=== PATIENT | female | born 1935 | race Caucasian/White ===

== ENCOUNTER 2020-10-09 15:41 | Inpatient (IN) | payer OTHER ==
[2020-10-09 16:26] VITALS: BMI 32.2
[2020-10-09] MEDS ORDERED: DEXAMETHASONE SOD PHOSPHATE 10 MG/1 ML VIAL IVPUSH ONE (18:01)
[2020-10-09] MEDS ORDERED: DEXAMETHASONE SOD PHOSPHATE 10 MG/1 ML VIAL ONE (18:15)
[2020-10-09 18:21] LABS: BASO % 0.2 % (0-2.0); HEMATOCRIT 32.8 % (32.4-45.2); HEMOGLOBIN 11.2 GM/dL (10.7-15.3); LYMPH % 18.5 % (8-40); MCH 29.4 pg (25.7-33.7); MCHC 34.1 g/dl (32.0-36.0); MEAN CELL VOLUME 86.4 fl (80-96); MEAN PLT VOLUME 11.4 fl (7.5-11.1); MONO % 6.5 % (3.8-10.2); NEUT % 74.8 % (42.8-82.8); PLATELET COUNT 176 K/MM3 (134-434); RDW 14.4 % (11.6-15.6); WHITE BLOOD COUNT 5.9 K/mm3 (4.0-10.0)
[2020-10-09 18:22] LABS: VENOUS BASE EXCESS 1.8 mmol/L (-2-2); VENOUS O2 SATURATION 81.6 % (70-80); VENOUS PCO2 32.6 mmHg (38-52); VENOUS PH 7.495 (7.310-7.410)
[2020-10-09 18:41] LABS: BILIRUBIN,DIRECT 0.2 mg/dL (0.0-0.2)
[2020-10-09 18:46] LABS: PLATELET ESTIMATE ADEQUATE
[2020-10-09 18:58] LABS: ALBUMIN 3.3 g/dl (3.4-5.0); CALCIUM 8.6 mg/dL (8.5-10.1)
[2020-10-09 18:59] LABS: MAGNESIUM 2.6 mg/dL (1.8-2.4)
[2020-10-09 19:01] LABS: CREATININE 1.4 mg/dL (0.55-1.3)
[2020-10-09 19:03] LABS: BILIRUBIN,TOTAL 0.6 mg/dL (0.2-1); TOT PROT 7.3 g/dl (6.4-8.2)
[2020-10-09] MEDS ORDERED: AZITHROMYCIN IVPB 500 MG in DEXTROSE 5%-WATER - 250 ML IVPB ONE (19:09)
[2020-10-09] MEDS ORDERED: CEFTRIAXONE 1,000 MG in DEXTROSE 5%-WATER - 50 ML IVPB ONE (19:09)
[2020-10-09] MEDS ORDERED: CEFTRIAXONE 1 GM/50 ML BAG ONE (19:17)
[2020-10-09] MEDS ORDERED: AZITHROMYCIN IVPB 500 MG/250 ML BAG IVPB ONE (19:17)
[2020-10-09] MEDS ORDERED: POTASSIUM CHLORIDE TABS 10 MEQ TABLET.ER (FP) PO ONE (19:18)
[2020-10-09] MEDS ORDERED: POTASSIUM CHLORIDE TABS 10 MEQ TABLET.ER (FP) ONE (19:28)
[2020-10-09] MEDS ORDERED: KCL 10 MEQ IVPB 30 MEQ/300 ML INFUS.BAG IVPB ONE (19:39)
[2020-10-09] MEDS: KCL 10 MEQ IVPB 10 MEQ/100 ML INFUS.BAG IVPB SCH ×3 (20:13→22:27)
[2020-10-09 20:47] LABS: EPI CELLS 36 /uL (0-25.1); HYALINE CASTS 1 /uL (0-3.1); URINE APPEARANCE CLEAR; URINE BACTERIA 575 /uL (0-1359); URINE BILIRUBIN NEGATIVE (NEGATIVE); URINE COLOR YELLOW; URINE GLUCOSE (UA) NEGATIVE (NEGATIVE); URINE KETONE NEGATIVE (NEGATIVE); URINE LEUK ESTERASE 1+ (NEGATIVE); URINE NITRITE NEGATIVE (NEGATIVE); URINE PROTEIN 2+ (NEGATIVE); URINE RBC 10 /uL (0-23.9); URINE WBC 20 /uL (0-25.8)
[2020-10-09] MEDS ORDERED: ASCORBIC ACID 500 MG TABLET (FP) ONE (22:29)
[2020-10-09] MEDS ORDERED: FAMOTIDINE 20 MG TABLET ONE (22:29)
[2020-10-09] MEDS ORDERED: HEPARIN NA (PORCINE) 5,000 UNITS/ML 1ML VIAL ONE (22:29)
[2020-10-09] MEDS: HEPARIN NA (PORCINE) 5,000 UNITS/ML 1ML VIAL SQ SCH (22:40)
[2020-10-09] MEDS: ASCORBIC ACID 250 MG TABLET (FP) PO SCH (22:40)
[2020-10-09] MEDS: FAMOTIDINE 20 MG TABLET PO SCH (22:40)
[2020-10-10] MEDS: HEPARIN NA (PORCINE) 5,000 UNITS/ML 1ML VIAL SQ SCH (06:49)
[2020-10-10] MEDS ORDERED: ALBUTEROL SO4 HFA INHALER IH PRN (07:54)
[2020-10-10 08:07] LABS: BASO % 0.2 % (0-2.0); HEMATOCRIT 33.9 % (32.4-45.2); HEMOGLOBIN 11.5 GM/dL (10.7-15.3); LYMPH % 16.7 % (8-40); MCH 28.2 pg (25.7-33.7); MCHC 33.8 g/dl (32.0-36.0); MEAN CELL VOLUME 83.6 fl (80-96); MEAN PLT VOLUME 10.9 fl (7.5-11.1); MONO % 5.2 % (3.8-10.2); NEUT % 77.9 % (42.8-82.8); PLATELET COUNT 192 K/MM3 (134-434); RBC 4.06 M/mm3 (3.60-5.2); RDW 14.6 % (11.6-15.6); WHITE BLOOD COUNT 4.5 K/mm3 (4.0-10.0)
[2020-10-10 08:20] LABS: POTASSIUM 3.4 mmol/L (3.5-5.1)
[2020-10-10 08:23] LABS: BLOOD UREA NITROGEN 28.9 mg/dL (7-18); CALCIUM 8.5 mg/dL (8.5-10.1); MAGNESIUM 2.3 mg/dL (1.8-2.4)
[2020-10-10 08:26] LABS: CREATININE 0.9 mg/dL (0.55-1.3); PHOSPHOROUS 3.8 mg/dL (2.5-4.9)
[2020-10-10 08:28] LABS: BILIRUBIN,TOTAL 0.5 mg/dL (0.2-1); TOT PROT 7.2 g/dl (6.4-8.2)
[2020-10-10 08:31] LABS: N-TERMINAL BNP 652.5 pg/ml (5-450)
[2020-10-10] MEDS ORDERED: POTASSIUM CHLORIDE ORAL LIQUID 20 MEQ/15 ML PO ONE (11:30)
[2020-10-10] MEDS ORDERED: DEXAMETHASONE SOD PHOSPHATE 10 MG/1 ML VIAL ONE (12:09)
[2020-10-10] MEDS ORDERED: FAMOTIDINE 20 MG TABLET ONE (12:09)
[2020-10-10] MEDS ORDERED: ASCORBIC ACID 500 MG TABLET (FP) ONE (12:09)
[2020-10-10] MEDS ORDERED: POTASSIUM CHLORIDE ORAL LIQUID 20 MEQ/15 ML ONE (12:10)
[2020-10-10] MEDS ORDERED: ZINC SULFATE 220 MG CAPSULE (FP) ONE (12:10)
[2020-10-10] MEDS ORDERED: CHOLECALCIFEROL (VIT D3) 1,000 UNIT (25 MCG) TABLET ONE (12:10)
[2020-10-10] MEDS: ASCORBIC ACID 250 MG TABLET (FP) PO SCH ×2 (12:18→23:01)
[2020-10-10] MEDS: ZINC SULFATE 220 MG CAPSULE (FP) PO SCH (12:18)
[2020-10-10] MEDS: CHOLECALCIFEROL (VIT D3) 1,000 UNIT (25 MCG) TABLET PO SCH (12:18)
[2020-10-10] MEDS: FAMOTIDINE 20 MG TABLET PO SCH (12:18)
[2020-10-10] MEDS: DEXAMETHASONE SOD PHOSPHATE 10 MG/1 ML VIAL IVPUSH SCH (12:18)
[2020-10-10] MEDS ORDERED: REMDESIVIR 200 MG in SODIUM CHLORIDE 210 ML IVPB ONE (13:00)
[2020-10-10] MEDS: BUDESONIDE/FORMETEROL FUMARATE 160/4.5 mcg INHALER IH SCH ×2 (14:54→23:49)
[2020-10-10] MEDS: ALBUTEROL SO4 HFA INHALER IH SCH ×2 (15:11→23:01)
[2020-10-10] MEDS: ENOXAPARIN NA (PORCINE) 80 MG/0.8 ML DISP.SYRIN SQ SCH (23:01)
[2020-10-11 07:27] LABS: HEMATOCRIT 32.9 % (32.4-45.2); HEMOGLOBIN 10.9 GM/dL (10.7-15.3); LYMPH % 9.9 % (8-40); MCH 28.4 pg (25.7-33.7); MCHC 33.1 g/dl (32.0-36.0); MEAN CELL VOLUME 85.6 fl (80-96); MEAN PLT VOLUME 10.7 fl (7.5-11.1); MONO % 6.6 % (3.8-10.2); NEUT % 83.5 % (42.8-82.8); PLATELET COUNT 207 K/MM3 (134-434); RBC 3.84 M/mm3 (3.60-5.2); RDW 14.6 % (11.6-15.6); WHITE BLOOD COUNT 8.1 K/mm3 (4.0-10.0)
[2020-10-11 07:55] LABS: POTASSIUM 3.2 mmol/L (3.5-5.1)
[2020-10-11 07:59] LABS: BLOOD UREA NITROGEN 34.9 mg/dL (7-18)
[2020-10-11 08:00] LABS: CALCIUM 8.8 mg/dL (8.5-10.1)
[2020-10-11 08:01] LABS: MAGNESIUM 2.2 mg/dL (1.8-2.4)
[2020-10-11 08:03] LABS: PHOSPHOROUS 3.8 mg/dL (2.5-4.9)
[2020-10-11 08:05] LABS: BILIRUBIN,TOTAL 0.4 mg/dL (0.2-1); TOT PROT 7.2 g/dl (6.4-8.2)
[2020-10-11] MEDS: ASCORBIC ACID 250 MG TABLET (FP) PO SCH ×2 (09:45→21:27)
[2020-10-11] MEDS: ZINC SULFATE 220 MG CAPSULE (FP) PO SCH (09:45)
[2020-10-11] MEDS: DEXAMETHASONE SOD PHOSPHATE 10 MG/1 ML VIAL IVPUSH SCH (09:45)
[2020-10-11] MEDS: ENOXAPARIN NA (PORCINE) 80 MG/0.8 ML DISP.SYRIN SQ SCH ×2 (09:45→21:27)
[2020-10-11] MEDS: BUDESONIDE/FORMETEROL FUMARATE 160/4.5 mcg INHALER IH SCH ×2 (09:46→21:27)
[2020-10-11] MEDS: CHOLECALCIFEROL (VIT D3) 1,000 UNIT (25 MCG) TABLET PO SCH (09:46)
[2020-10-11] MEDS: FAMOTIDINE 20 MG TABLET PO SCH (09:46)
[2020-10-11] MEDS ORDERED: POTASSIUM CHLORIDE ORAL LIQUID 20 MEQ/15 ML PO ONE ×2 (11:45→21:41)
[2020-10-11] MEDS: REMDESIVIR 100 MG in SODIUM CHLORIDE 230 ML IVPB SCH (12:55)
[2020-10-11] MEDS: ALBUTEROL SO4 HFA INHALER IH SCH ×4 (12:56→21:40)
[2020-10-11] MEDS: KCL 10 MEQ IVPB 10 MEQ/100 ML INFUS.BAG IVPB SCH ×3 (14:29→16:24)
[2020-10-12 06:59] LABS: BASO % 0.1 % (0-2.0); HEMOGLOBIN 11.6 GM/dL (10.7-15.3); LYMPH % 11.1 % (8-40); MCH 28.4 pg (25.7-33.7); MCHC 33.2 g/dl (32.0-36.0); MEAN CELL VOLUME 85.6 fl (80-96); MEAN PLT VOLUME 10.8 fl (7.5-11.1); MONO % 7.9 % (3.8-10.2); NEUT % 80.9 % (42.8-82.8); PLATELET COUNT 234 K/MM3 (134-434); RBC 4.09 M/mm3 (3.60-5.2); RDW 14.6 % (11.6-15.6); WHITE BLOOD COUNT 8.2 K/mm3 (4.0-10.0)
[2020-10-12 07:40] LABS: CALCIUM 8.9 mg/dL (8.5-10.1)
[2020-10-12 07:41] LABS: ALBUMIN 2.9 g/dl (3.4-5.0); BLOOD UREA NITROGEN 32.9 mg/dL (7-18); MAGNESIUM 1.9 mg/dL (1.8-2.4)
[2020-10-12 07:43] LABS: CREATININE 0.9 mg/dL (0.55-1.3)
[2020-10-12 07:45] LABS: TOT PROT 6.9 g/dl (6.4-8.2)
[2020-10-12 07:52] LABS: BILIRUBIN,TOTAL 0.7 mg/dL (0.2-1)
[2020-10-12] MEDS: CHOLECALCIFEROL (VIT D3) 1,000 UNIT (25 MCG) TABLET PO SCH (09:36)
[2020-10-12] MEDS: FAMOTIDINE 20 MG TABLET PO SCH (09:36)
[2020-10-12] MEDS: BUDESONIDE/FORMETEROL FUMARATE 160/4.5 mcg INHALER IH SCH ×2 (09:36→21:17)
[2020-10-12] MEDS: ALBUTEROL SO4 HFA INHALER IH SCH ×3 (09:36→17:34)
[2020-10-12] MEDS: ENOXAPARIN NA (PORCINE) 80 MG/0.8 ML DISP.SYRIN SQ SCH ×2 (09:36→21:17)
[2020-10-12] MEDS: ZINC SULFATE 220 MG CAPSULE (FP) PO SCH (09:36)
[2020-10-12] MEDS: DEXAMETHASONE SOD PHOSPHATE 10 MG/1 ML VIAL IVPUSH SCH (09:36)
[2020-10-12] MEDS: ASCORBIC ACID 250 MG TABLET (FP) PO SCH ×2 (09:37→21:18)
[2020-10-12] MEDS ORDERED: MAGNESIUM SULF 50% (8.12 MEQ/2 ML-1 GM VIAL) IVPB ONE (10:32)
[2020-10-12] MEDS: REMDESIVIR 100 MG in SODIUM CHLORIDE 230 ML IVPB SCH (11:27)
[2020-10-12] MEDS: MELATONIN 5 MG TABLETS PO PRN (21:18)
[2020-10-13] MEDS ORDERED: ATENOLOL 25 MG TABLET (FP) PO ONE (06:30)
[2020-10-13 07:31] LABS: HEMOGLOBIN 12.4 GM/dL (10.7-15.3); MCH 28.3 pg (25.7-33.7); MCHC 33.5 g/dl (32.0-36.0); MEAN CELL VOLUME 84.4 fl (80-96); MEAN PLT VOLUME 10.5 fl (7.5-11.1); PLATELET COUNT 275 K/MM3 (134-434); RBC 4.38 M/mm3 (3.60-5.2); RDW 14.5 % (11.6-15.6)
[2020-10-13 08:05] LABS: POTASSIUM 4.1 mmol/L (3.5-5.1)
[2020-10-13 08:19] LABS: BLOOD UREA NITROGEN 38.6 mg/dL (7-18); CALCIUM 9.1 mg/dL (8.5-10.1)
[2020-10-13 08:20] LABS: MAGNESIUM 2.3 mg/dL (1.8-2.4)
[2020-10-13 08:23] LABS: PHOSPHOROUS 4.4 mg/dL (2.5-4.9)
[2020-10-13] MEDS: REMDESIVIR 100 MG in SODIUM CHLORIDE 230 ML IVPB SCH (10:19)
[2020-10-13] MEDS: ENOXAPARIN NA (PORCINE) 80 MG/0.8 ML DISP.SYRIN SQ SCH ×2 (10:20→21:54)
[2020-10-13] MEDS: ZINC SULFATE 220 MG CAPSULE (FP) PO SCH (10:20)
[2020-10-13] MEDS: ALBUTEROL SO4 HFA INHALER IH SCH ×4 (10:20→20:15)
[2020-10-13] MEDS: DEXAMETHASONE SOD PHOSPHATE 10 MG/1 ML VIAL IVPUSH SCH (10:20)
[2020-10-13] MEDS: ASCORBIC ACID 250 MG TABLET (FP) PO SCH ×2 (10:21→21:54)
[2020-10-13] MEDS: BUDESONIDE/FORMETEROL FUMARATE 160/4.5 mcg INHALER IH SCH ×2 (10:21→21:54)
[2020-10-13] MEDS: CHOLECALCIFEROL (VIT D3) 1,000 UNIT (25 MCG) TABLET PO SCH (10:21)
[2020-10-13] MEDS: FAMOTIDINE 20 MG TABLET PO SCH (10:21)
[2020-10-13] MEDS: ATENOLOL 25 MG TABLET (FP) PO SCH (10:53)
[2020-10-13] MEDS: MELATONIN 5 MG TABLETS PO PRN (21:54)
[2020-10-14 08:03] LABS: HEMATOCRIT 38.6 % (32.4-45.2); HEMOGLOBIN 12.8 GM/dL (10.7-15.3); MCH 28.3 pg (25.7-33.7); MCHC 33.1 g/dl (32.0-36.0); MEAN CELL VOLUME 85.4 fl (80-96); MEAN PLT VOLUME 10.6 fl (7.5-11.1); PLATELET COUNT 311 K/MM3 (134-434); RBC 4.52 M/mm3 (3.60-5.2); RDW 14.4 % (11.6-15.6); WHITE BLOOD COUNT 16.4 K/mm3 (4.0-10.0)
[2020-10-14 08:38] LABS: POTASSIUM 3.9 mmol/L (3.5-5.1)
[2020-10-14 08:45] LABS: CALCIUM 9.4 mg/dL (8.5-10.1)
[2020-10-14] MEDS: ALBUTEROL SO4 HFA INHALER IH SCH ×4 (09:12→20:50)
[2020-10-14] MEDS: DEXAMETHASONE SOD PHOSPHATE 10 MG/1 ML VIAL IVPUSH SCH (09:13)
[2020-10-14] MEDS: ENOXAPARIN NA (PORCINE) 80 MG/0.8 ML DISP.SYRIN SQ SCH ×2 (09:13→22:03)
[2020-10-14] MEDS: ZINC SULFATE 220 MG CAPSULE (FP) PO SCH (09:14)
[2020-10-14] MEDS: FAMOTIDINE 20 MG TABLET PO SCH (09:14)
[2020-10-14] MEDS: ATENOLOL 25 MG TABLET (FP) PO SCH (09:14)
[2020-10-14] MEDS: ASCORBIC ACID 250 MG TABLET (FP) PO SCH ×2 (09:14→22:03)
[2020-10-14] MEDS: BUDESONIDE/FORMETEROL FUMARATE 160/4.5 mcg INHALER IH SCH ×2 (09:14→22:03)
[2020-10-14] MEDS: CHOLECALCIFEROL (VIT D3) 1,000 UNIT (25 MCG) TABLET PO SCH (09:14)
[2020-10-14] MEDS: REMDESIVIR 100 MG in SODIUM CHLORIDE 230 ML IVPB SCH (12:45)
[2020-10-15 07:23] LABS: HEMATOCRIT 36.6 % (32.4-45.2); MCHC 32.9 g/dl (32.0-36.0); MEAN CELL VOLUME 85.3 fl (80-96); MEAN PLT VOLUME 10.3 fl (7.5-11.1); PLATELET COUNT 254 K/MM3 (134-434); RBC 4.29 M/mm3 (3.60-5.2); RDW 14.5 % (11.6-15.6); WHITE BLOOD COUNT 12.1 K/mm3 (4.0-10.0)
[2020-10-15 08:01] LABS: CALCIUM 8.9 mg/dL (8.5-10.1)
[2020-10-15 08:02] LABS: MAGNESIUM 2.4 mg/dL (1.8-2.4)
[2020-10-15 08:05] LABS: CREATININE 1.1 mg/dL (0.55-1.3); PHOSPHOROUS 4.6 mg/dL (2.5-4.9)
[2020-10-15] MEDS: DEXAMETHASONE SOD PHOSPHATE 10 MG/1 ML VIAL IVPUSH SCH (09:16)
[2020-10-15] MEDS: ALBUTEROL SO4 HFA INHALER IH SCH ×4 (09:16→19:45)
[2020-10-15] MEDS: BUDESONIDE/FORMETEROL FUMARATE 160/4.5 mcg INHALER IH SCH ×2 (09:17→21:36)
[2020-10-15] MEDS: ENOXAPARIN NA (PORCINE) 80 MG/0.8 ML DISP.SYRIN SQ SCH ×2 (09:17→21:35)
[2020-10-15] MEDS: ASCORBIC ACID 250 MG TABLET (FP) PO SCH ×2 (09:17→21:36)
[2020-10-15] MEDS: ZINC SULFATE 220 MG CAPSULE (FP) PO SCH (09:17)
[2020-10-15] MEDS: FAMOTIDINE 20 MG TABLET PO SCH (09:17)
[2020-10-15] MEDS: CHOLECALCIFEROL (VIT D3) 1,000 UNIT (25 MCG) TABLET PO SCH (09:17)
[2020-10-15] MEDS: ATENOLOL 25 MG TABLET (FP) PO SCH (09:17)
[2020-10-15] MEDS ORDERED: SODIUM CHLORIDE 0.45% 1,000 ML IV SCH (13:45)
[2020-10-15 16:00] LABS: POTASSIUM 3.8 mmol/L (3.5-5.1)
[2020-10-15 16:01] LABS: CALCIUM 8.6 mg/dL (8.5-10.1)
[2020-10-15 16:02] LABS: BLOOD UREA NITROGEN 50.7 mg/dL (7-18)
[2020-10-15 16:05] LABS: CREATININE 1.2 mg/dL (0.55-1.3)
[2020-10-16 08:37] LABS: BASO % 0.1 % (0-2.0); EOS % 0.1 % (0-4.5); HEMATOCRIT 35.6 % (32.4-45.2); HEMOGLOBIN 11.4 GM/dL (10.7-15.3); LYMPH % 6.7 % (8-40); MCH 27.5 pg (25.7-33.7); MCHC 32.2 g/dl (32.0-36.0); MEAN CELL VOLUME 85.5 fl (80-96); MEAN PLT VOLUME 10.7 fl (7.5-11.1); MONO % 6.7 % (3.8-10.2); NEUT % 86.4 % (42.8-82.8); PLATELET COUNT 243 K/MM3 (134-434); RBC 4.16 M/mm3 (3.60-5.2); RDW 14.3 % (11.6-15.6)
[2020-10-16 08:54] LABS: POTASSIUM 3.6 mmol/L (3.5-5.1)
[2020-10-16 08:58] LABS: ALBUMIN 2.5 g/dl (3.4-5.0); CALCIUM 8.4 mg/dL (8.5-10.1); MAGNESIUM 2.1 mg/dL (1.8-2.4)
[2020-10-16 09:02] LABS: PHOSPHOROUS 3.4 mg/dL (2.5-4.9)
[2020-10-16 09:03] LABS: BILIRUBIN,TOTAL 0.8 mg/dL (0.2-1); TOT PROT 6.1 g/dl (6.4-8.2)
[2020-10-16] MEDS: ALBUTEROL SO4 HFA INHALER IH SCH ×5 (10:49→22:17)
[2020-10-16] MEDS: ZINC SULFATE 220 MG CAPSULE (FP) PO SCH (10:50)
[2020-10-16] MEDS: BUDESONIDE/FORMETEROL FUMARATE 160/4.5 mcg INHALER IH SCH ×2 (10:50→22:17)
[2020-10-16] MEDS: ENOXAPARIN NA (PORCINE) 80 MG/0.8 ML DISP.SYRIN SQ SCH (10:50)
[2020-10-16] MEDS: DEXAMETHASONE SOD PHOSPHATE 10 MG/1 ML VIAL IVPUSH SCH (10:50)
[2020-10-16] MEDS: FAMOTIDINE 20 MG TABLET PO SCH (10:50)
[2020-10-16] MEDS: CHOLECALCIFEROL (VIT D3) 1,000 UNIT (25 MCG) TABLET PO SCH (10:50)
[2020-10-16] MEDS: ASCORBIC ACID 250 MG TABLET (FP) PO SCH ×2 (10:50→22:17)
[2020-10-16] MEDS: ATENOLOL 25 MG TABLET (FP) PO SCH (10:50)
[2020-10-17 07:39] LABS: BASO % 0.2 % (0-2.0); HEMATOCRIT 37.4 % (32.4-45.2); HEMOGLOBIN 12.4 GM/dL (10.7-15.3); LYMPH % 6.2 % (8-40); MCH 28.1 pg (25.7-33.7); MCHC 33.1 g/dl (32.0-36.0); MEAN CELL VOLUME 84.9 fl (80-96); MEAN PLT VOLUME 10.6 fl (7.5-11.1); MONO % 6.5 % (3.8-10.2); NEUT % 87.1 % (42.8-82.8); PLATELET COUNT 263 K/MM3 (134-434); RDW 14.2 % (11.6-15.6); WHITE BLOOD COUNT 15.4 K/mm3 (4.0-10.0)
[2020-10-17 07:56] LABS: CALCIUM 8.8 mg/dL (8.5-10.1); POTASSIUM 3.8 mmol/L (3.5-5.1)
[2020-10-17 07:57] LABS: ALBUMIN 2.6 g/dl (3.4-5.0); BLOOD UREA NITROGEN 36.6 mg/dL (7-18); MAGNESIUM 2.3 mg/dL (1.8-2.4)
[2020-10-17 08:00] LABS: CREATININE 0.9 mg/dL (0.55-1.3); PHOSPHOROUS 3.8 mg/dL (2.5-4.9)
[2020-10-17 08:01] LABS: BILIRUBIN,TOTAL 0.7 mg/dL (0.2-1)
[2020-10-17 08:02] LABS: TOT PROT 6.5 g/dl (6.4-8.2)
[2020-10-17 09:36] LABS: ANISOCYTOSIS 0; MACROCYTOSIS 0; PLATELET ESTIMATE NORMAL
[2020-10-17] MEDS: ALBUTEROL SO4 HFA INHALER IH SCH ×4 (10:10→21:39)
[2020-10-17] MEDS: DEXAMETHASONE SOD PHOSPHATE 10 MG/1 ML VIAL IVPUSH SCH (10:11)
[2020-10-17] MEDS: ATENOLOL 25 MG TABLET (FP) PO SCH (10:11)
[2020-10-17] MEDS: ENOXAPARIN NA (PORCINE) 40 MG/0.4 ML DISP.SYRIN SQ SCH (10:11)
[2020-10-17] MEDS: ASCORBIC ACID 250 MG TABLET (FP) PO SCH ×2 (10:12→21:38)
[2020-10-17] MEDS: FAMOTIDINE 20 MG TABLET PO SCH (10:12)
[2020-10-17] MEDS: ZINC SULFATE 220 MG CAPSULE (FP) PO SCH (10:12)
[2020-10-17] MEDS: CHOLECALCIFEROL (VIT D3) 1,000 UNIT (25 MCG) TABLET PO SCH (10:13)
[2020-10-17] MEDS: BUDESONIDE/FORMETEROL FUMARATE 160/4.5 mcg INHALER IH SCH ×2 (10:13→21:42)
[2020-10-18 08:48] LABS: BASO % 0.2 % (0-2.0); HEMATOCRIT 36.8 % (32.4-45.2); HEMOGLOBIN 11.8 GM/dL (10.7-15.3); LYMPH % 7.2 % (8-40); MCH 27.7 pg (25.7-33.7); MCHC 32.1 g/dl (32.0-36.0); MEAN CELL VOLUME 86.2 fl (80-96); MEAN PLT VOLUME 11.1 fl (7.5-11.1); MONO % 7.9 % (3.8-10.2); NEUT % 84.7 % (42.8-82.8); PLATELET COUNT 211 K/MM3 (134-434); RBC 4.27 M/mm3 (3.60-5.2); WHITE BLOOD COUNT 13.4 K/mm3 (4.0-10.0)
[2020-10-18 09:06] LABS: POTASSIUM 3.9 mmol/L (3.5-5.1)
[2020-10-18 09:09] LABS: ALBUMIN 2.5 g/dl (3.4-5.0); BLOOD UREA NITROGEN 39.8 mg/dL (7-18); CALCIUM 8.7 mg/dL (8.5-10.1); MAGNESIUM 2.2 mg/dL (1.8-2.4)
[2020-10-18 09:12] LABS: CREATININE 0.9 mg/dL (0.55-1.3)
[2020-10-18 09:13] LABS: PHOSPHOROUS 3.6 mg/dL (2.5-4.9)
[2020-10-18 09:14] LABS: BILIRUBIN,TOTAL 0.5 mg/dL (0.2-1); TOT PROT 6.1 g/dl (6.4-8.2)
[2020-10-18] MEDS: ZINC SULFATE 220 MG CAPSULE (FP) PO SCH (09:59)
[2020-10-18] MEDS: ASCORBIC ACID 250 MG TABLET (FP) PO SCH (09:59)
[2020-10-18] MEDS: ATENOLOL 25 MG TABLET (FP) PO SCH (09:59)
[2020-10-18] MEDS: ENOXAPARIN NA (PORCINE) 40 MG/0.4 ML DISP.SYRIN SQ SCH (10:00)
[2020-10-18] MEDS: ALBUTEROL SO4 HFA INHALER IH SCH ×3 (10:00→18:02)
[2020-10-18] MEDS: DEXAMETHASONE SOD PHOSPHATE 10 MG/1 ML VIAL IVPUSH SCH (10:00)
[2020-10-18] MEDS: FAMOTIDINE 20 MG TABLET PO SCH (10:01)
[2020-10-18] MEDS: BUDESONIDE/FORMETEROL FUMARATE 160/4.5 mcg INHALER IH SCH (10:02)
[2020-10-18] MEDS: CHOLECALCIFEROL (VIT D3) 1,000 UNIT (25 MCG) TABLET PO SCH (10:02)
[2020-10-18 10:24] LABS: ANISOCYTOSIS 0; MACROCYTOSIS 0; PLATELET ESTIMATE NORMAL
[2020-10-18 14:50] VITALS: BP 134/87; PULSE 79; TEMP 98.4
== END 2020-10-18 17:36 | DRG 177 ==
LOC: JER 15:41 → JERBED 19:34 → J4W 10-10 13:04
PROVIDERS: ADMIT Hospitalist; ATTEND Internal Medicine
PROC: XW13325 Transfusion of Convalescent Plasma (Nonautologous) into Peripheral Vein, Percutaneous Approach, New Technology Group 5 (ICD-10-PCS; principal; 2020-10-10)
PROC: XW033E5 Introduction of Remdesivir Anti-infective into Peripheral Vein, Percutaneous Approach, New Technology Group 5 (ICD-10-PCS; 2020-10-10)
DX: U07.1 COVID-19 (principal); J12.82 Pneumonia due to coronavirus disease 2019; J96.01 Acute respiratory failure with hypoxia; N17.9 Acute kidney failure, unspecified; I10 Essential (primary) hypertension; E78.5 Hyperlipidemia, unspecified; E66.9 Obesity, unspecified; Z68.32 Body mass index [BMI] 32.0-32.9, adult; E87.6 Hypokalemia
CPT/HCPCS: 36415; 36430; 71045-TC-FY; 80048; 80053; 81003; 82248; 82550; 82553; 82728; 82803; 82962; 83605; 83615; 83735; 83880; 83930; 83935; 84100; 84300; 84484; 85025; 85027; 85379; 85651; 86140; 86769; 86850; 86900; 86901; 87040; 87086; 87186; 87804; 93005; 93010; 97116-GP; 97161-GP; 99285-25; C9399; C9803; J1100; J1644; P9017; U0003

== ENCOUNTER 2020-10-23 11:01 | Emergency (ER) | payer OTHER ==
[2020-10-23 12:04] VITALS: TEMP 98.2; BMI 25.1
[2020-10-23 17:29] VITALS: BP 154/97; PULSE 69
== END 2020-10-23 17:29 | disposition home or self-care (01) ==
LOC: JER 11:01
DX: S00.03XA Contusion of scalp, initial encounter (principal)
CPT/HCPCS: 70450-TC; 72125-TC; 93005; 93010; 99285-25